=== PATIENT | male | born 2000 | race Hispanic/Latino ===

== ENCOUNTER 2024-06-17 20:04 | Emergency (ER) | payer OTHER, SELFPAY ==
[2024-06-17] MEDS ORDERED: Bacitracin 1 PK ONE (21:05)
[2024-06-17] MEDS ORDERED: Cephalexin 250 MG CAP PO SCH (21:15)
== END 2024-06-17 21:17 | disposition home or self-care (01) ==
LOC: EDBD 20:04 → BURERS 20:04
DX: S61.214A Laceration without foreign body of right ring finger without damage to nail, initial encounter (principal); W23.1XXA Caught, crushed, jammed, or pinched between stationary objects, initial encounter